=== PATIENT | male | born 1985 | race Caucasian/White ===

== ENCOUNTER → 2016-10-27 | Outpatient (CLI) | payer OTHER ==
--- NOTE | 2016-10-27 15:13 | KCIC ---
PROCEDURE Three views left shoulder dated 10/27/2016. HISTORY Low shoulder pain post injury 3 days ago. TECHNIQUE Three views obtained. COMPARISON None. FINDINGS Bony alignment is anatomic. No displaced fracture. No acute osseous or articular abnormality. IMPRESSION No acute findings. Electronically signed by: Hayden Griffin (Oct 27, 2016 15:12:05)
== END | disposition home or self-care (01) ==
LOC: KCIC 14:28
PROVIDERS: ATTEND Nurse Practitioner Family
DX: S49.92XA Unspecified injury of left shoulder and upper arm, initial encounter (principal); X58.XXXA Exposure to other specified factors, initial encounter; Y93.89 Activity, other specified; Y92.89 Other specified places as the place of occurrence of the external cause; Y99.8 Other external cause status
CPT/HCPCS: 73030